=== PATIENT | female | born 1990 | race Caucasian/White ===

== ENCOUNTER 2018-01-06 18:04 | Inpatient (IN) | payer OTHER ==
[~2018-01-06] VITALS: Ht 167.6 cm; Wt 106.4 kg
[2018-01-06 21:15] VITALS: BP 123/68; PULSE 86; RESP 18; TEMP 99.2
[2018-01-07] MEDS ORDERED: diphenhydrAMINE HCL 50 MG CAP PO PRN (04:30)
[2018-01-07] MEDS ORDERED: MAGNESIUM HYDROXIDE SUSP 30 ML CUP PO PRN (04:30)
[2018-01-07] MEDS ORDERED: LORazepam 1 MG TAB PO PRN (04:30)
[2018-01-07] MEDS ORDERED: diphenhydrAMINE HCL 50 MG/ML VIAL - HS PRN IM (04:30)
[2018-01-07] MEDS ORDERED: BENZTROPINE MESYLATE 2 MG/2 ML VIAL IM PRN (04:30)
[2018-01-07] MEDS ORDERED: ALUMINUM/MAGNESIUM/SIMETH 30 ML CUP PO PRN (04:30)
[2018-01-07] MEDS ORDERED: LORazepam 2 MG/ML VIAL IM PRN (04:30)
[2018-01-07] MEDS ORDERED: hydrOXYzine HCL 50 MG TAB PO PRN (04:30)
[2018-01-07] MEDS ORDERED: BENZTROPINE MESYLATE 1 MG TAB PO PRN (04:30)
[2018-01-07] MEDS ORDERED: diphenhydrAMINE HCL 50 MG CAP - HS PRN PO (04:30)
[2018-01-07] MEDS ORDERED: diphenhydrAMINE HCL 50 MG/ML VIAL IM PRN (04:30)
[2018-01-07] MEDS ORDERED: ACETAMINOPHEN 325 MG TAB PO PRN (04:30)
[2018-01-07 06:08] VITALS: BP 124/71; PULSE 86; RESP 18; TEMP 98.4; O2SAT 97
[2018-01-07] MEDS: LEVOTHYROXINE SODIUM 88 MCG TAB PO SCH (06:11)
[2018-01-07 07:09] LABS: BICARBONATE 23.8 MEQ/L (21.0-32.0); BLOOD UREA NITROGEN 13 MG/DL (7-18); CALCIUM 8.9 MG/DL (8.5-10.1); CHLORIDE 108 MEQ/L (98-107); CREATININE 0.67 MG/DL (0.50-1.00); GLOMERULAR FILTRATION RATE 106 ML/MIN (>89); GLUCOSE,RANDOM 89 MG/DL (74-106); SODIUM (NA) 141 MEQ/L (136-145)
[2018-01-07 07:10] LABS: CHOLESTEROL 145 MG/DL (120-200); TRIGLYCERIDES 174 MG/DL (42-150)
[2018-01-07 07:13] LABS: CHOLESTEROL/ HDL RATIO 2.74 RATIO; HDL CHOLESTEROL 52.8 MG/DL (40.0-60.0); LDL CHOLESTEROL 57 MG/DL (0-99)
[2018-01-07] MEDS ORDERED: ETHINYL ESTRADIOL PO SCH (09:00)
[2018-01-07] MEDS ORDERED: NICOTINE 21 MG/24 HR PATCH T-DERMAL SCH (09:00)
[2018-01-07] MEDS ORDERED: busPIRone HCL 5 MG TAB PO SCH (09:00)
[2018-01-07] MEDS ORDERED: lamoTRIgine 100 MG TAB PO SCH ×2 (09:00→21:00)
[2018-01-07] MEDS ORDERED: DROSPIRENONE PO SCH (09:00)
[2018-01-07] MEDS: HALOPERIDOL 5 MG TAB PO SCH (09:12)
[2018-01-07] MEDS: PANTOPRAZOLE SOD 40 MG DELAYED RELEASE TAB PO SCH (09:12)
[2018-01-07] MEDS: BENZTROPINE MESYLATE 1 MG TAB PO SCH ×2 (09:13→21:08)
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
[2018-01-07] MEDS ORDERED: NICOTINE 21 MG/24 HR PATCH T-DERMAL PRN (10:15)
[2018-01-07] MEDS ORDERED: HALOPERIDOL DECANOATE 50 MG/ML VIAL IM SCH ×2 (10:15→15:30)
[2018-01-07] MEDS ORDERED: lamoTRIgine 100 MG TAB PO ONE (10:15)
[2018-01-07] MEDS: CHOLECALCIFEROL (VIT D3) 5000 UNIT CAP PO SCH (11:38)
[2018-01-07 16:48] LABS: HEMOGLOBIN A1C 5.4 % (4.3-6.0)
[2018-01-07 17:39] VITALS: BP 129/74; PULSE 79; RESP 18; TEMP 98; O2SAT 98
[2018-01-07] MEDS ORDERED: REMOVE OLD NICOTINE PATCH T-DERMAL SCH (21:00)
[2018-01-07] MEDS: busPIRone HCL 5 MG TAB PO SCH (21:09)
[2018-01-08 06:01] VITALS: BP 124/69; PULSE 85; RESP 16; TEMP 98.3; O2SAT 97
[2018-01-08] MEDS: LEVOTHYROXINE SODIUM 88 MCG TAB PO SCH (06:30)
[2018-01-08] MEDS ORDERED: lamoTRIgine 100 MG TAB PO SCH (09:00)
[2018-01-08] MEDS: BENZTROPINE MESYLATE 1 MG TAB PO SCH (09:22)
[2018-01-08] MEDS: PANTOPRAZOLE SOD 40 MG DELAYED RELEASE TAB PO SCH (09:22)
[2018-01-08] MEDS: CHOLECALCIFEROL (VIT D3) 5000 UNIT CAP PO SCH (09:22)
[2018-01-08] MEDS: busPIRone HCL 5 MG TAB PO SCH (09:23)
[2018-01-08] MEDS: HALOPERIDOL 5 MG TAB PO SCH (09:23)
[2018-01-08] MEDS ORDERED: BUSP5TAB PO (13:04)
[2018-01-08] MEDS ORDERED: SYNT88TA PO (13:04)
[2018-01-08] MEDS ORDERED: PANT40TA3 PO (13:04)
[2018-01-08] MEDS ORDERED: Benztropine PO (13:04)
[2018-01-08] MEDS ORDERED: HALO100P IM (13:04)
[2018-01-08] MEDS ORDERED: HALO5TAB PO (13:04)
[2018-01-08] MEDS ORDERED: LAMO100 PO ×2 (13:04)
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
--- NOTE | 2018-01-09 08:30 | EKG ---
Date Performed: 01/07/2018 Time Performed: 12:50:50 PTAGE: 27 years EKG: Sinus rhythm NORMAL ECG NO PREVIOUS TRACING DOCTOR: Selam Abreu Interpretating Date/Time 01/09/2018 08:19:21
== END 2018-01-08 15:15 | disposition home or self-care (01) | DRG 885 ==
LOC: H270 20:30 → H260 01-07 12:10
PROVIDERS: ADMIT Psychiatry & Neurology Psychiatry; ATTEND Psychiatry & Neurology Psychiatry
DX: F25.0 Schizoaffective disorder, bipolar type (principal); E03.9 Hypothyroidism, unspecified; F41.9 Anxiety disorder, unspecified; F43.10 Post-traumatic stress disorder, unspecified; K21.9 Gastro-esophageal reflux disease without esophagitis; F17.210 Nicotine dependence, cigarettes, uncomplicated; Z91.5 Personal history of self-harm
CPT/HCPCS: 80048; 80061; 83036; 84443; 93005; J1631